=== PATIENT | female | born 1980 | race Caucasian/White ===

== ENCOUNTER 2016-06-21 12:06 | Emergency (ER) | payer OTHER ==
[~2016-06-21] VITALS: Ht 172.7 cm; Wt 110.0 kg
[~2016-06-21 12:06] MED LIST: ALBU8I INH; BACT800T5 PO; IBUP800T23 PO
[2016-06-21 12:07] VITALS: BP 156/80; PULSE 72; RESP 16; TEMP 97.8; O2SAT 99
[2016-06-21 13:13] VITALS: BP 134/76; PULSE 99; RESP 16
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
[2016-06-21] MEDS ORDERED: diphenhydrAMINE HCL 50 MG/ML VIAL IV ONE (14:15)
[2016-06-21] MEDS ORDERED: METOCLOPRAMIDE HCL 10 MG/2 ML VIAL IV PUSH ONE (14:15)
[2016-06-21] MEDS ORDERED: ONDANSETRON HCL 4 MG/2 ML VIAL IVP ONE (14:15)
[2016-06-21] MEDS ORDERED: SODIUM CHLORIDE 0.9% FLUSH 10 ML FLUSH IVF PRN (14:15)
[2016-06-21 14:16] VITALS: O2SAT 97
[2016-06-21 14:26] LABS: AUTOMATED NEUTROPHIL # 7.6 TH/MM3 (1.8-7.7); BASOPHIL # 0.1 TH/MM3 (0-0.2); BASOPHIL % 0.7 % (0.0-2.0); EOSINOPHIL # 0.1 TH/MM3 (0-0.4); HEMATOCRIT 38.4 % (35.0-46.0); HEMO FLAGS DIFF FINAL; LYMPH % 18.6 % (9.0-44.0); LYMPHOCYTE # 1.9 TH/MM3 (1.0-4.8); MEAN CELL VOLUME 86.7 FL (80.0-100.0); MEAN CORPUSCULAR HEMOGLOBIN 28.9 PG (27.0-34.0); MEAN CORPUSCULAR HGB CONC 33.3 % (32.0-36.0); MONO % 6.2 % (0.0-8.0); NEUT % 73.5 % (16.0-70.0); PLATELET COUNT 234 TH/MM3 (150-450); RED BLOOD COUNT 4.43 MIL/MM3 (4.00-5.30); RED CELL DISTRIBUTION WIDTH 13.4 % (11.6-17.2); WHITE BLOOD COUNT 10.4 TH/MM3 (4.0-11.0)
[2016-06-21 14:38] LABS: BICARBONATE 25.9 MEQ/L (21.0-32.0); MAGNESIUM 2.2 MG/DL (1.5-2.5); POTASSIUM 3.5 MEQ/L (3.5-5.1)
--- NOTE | 2016-06-21 14:57 | PD ---
Data Data Last Documented VS Vital Signs Date Time Temp Pulse Resp B/P Pulse Ox O2 Delivery O2 Flow Rate FiO2 06/21/16 14:16 97 Room Air 06/21/16 13:13 99 16 134/76 06/21/16 12:07 97.8 Orders Basic Metabolic Panel (Bmp) (06/21/16 14:02) Complete Blood Count With Diff (06/21/16 14:02) Magnesium (Mg) (06/21/16 14:02) Ecg Monitoring (06/21/16 14:02) Iv Access Insert/Monitor (06/21/16 14:02) Oximetry (06/21/16 14:02) Ondansetron Inj (Zofran Inj) (06/21/16 14:15) Sodium Chloride 0.9% Flush (Ns Flush) (06/21/16 14:15) Ed Urine Pregnancytest Poc (06/21/16 14:02) Diphenhydramine Inj (Benadryl Inj) (06/21/16 14:15) Metoclopramide Inj (Reglan Inj) (06/21/16 14:15) Labs Laboratory Tests Test 06/21/16 14:16 White Blood Count 10.4 TH/MM3 Red Blood Count 4.43 MIL/MM3 Hemoglobin 12.8 GM/DL Hematocrit 38.4 % Mean Corpuscular Volume 86.7 FL Mean Corpuscular Hemoglobin 28.9 PG Mean Corpuscular Hemoglobin 33.3 % Concent Red Cell Distribution Width 13.4 % Platelet Count 234 TH/MM3 Mean Platelet Volume 8.4 FL Neutrophils (%) (Auto) 73.5 % Lymphocytes (%) (Auto) 18.6 % Monocytes (%) (Auto) 6.2 % Eosinophils (%) (Auto) 1.0 % Basophils (%) (Auto) 0.7 % Neutrophils # (Auto) 7.6 TH/MM3 Lymphocytes # (Auto) 1.9 TH/MM3 Monocytes # (Auto) 0.6 TH/MM3 Eosinophils # (Auto) 0.1 TH/MM3 Basophils # (Auto) 0.1 TH/MM3 CBC Comment DIFF FINAL Differential Comment Sodium Level 140 MEQ/L Potassium Level 3.5 MEQ/L Chloride Level 106 MEQ/L Carbon Dioxide Level 25.9 MEQ/L Anion Gap 8 MEQ/L Blood Urea Nitrogen 9 MG/DL Creatinine 0.79 MG/DL Estimat Glomerular Filtration 82 ML/MIN Rate Random Glucose 94 MG/DL Calcium Level 8.8 MG/DL Magnesium Level 2.2 MG/DL MDM Supervised Visit with GEENA: Yes Narrative Course I, Dr. Tipton, have reviewed the advance practice practioner's documentation and am in agreement, met with the patient face to face, made the diagnosis, and the medical decision making was done by me. *My assessment and Findings: 35-year-old female here with complaint of headache. This radiates from the upper back into the neck into the occiput and slightly throughout the head. This is throbbing. She does note some flashers, floaters. Some lightheadedness and dizziness. She does not have a history of heavy menses. Patient's notes that she went on a crash diet approximate 1 week ago and cut out all caffeine. This morning she tried a dose of Excedrin Migraine with caffeine in it which helped, but when it wore off her headache return. My strong suspicion is that this is tension headache versus caffeine withdrawal. With her lightheadedness, will obtain laboratory workup to evaluate for anemia electrolyte abnormality and discharged home when negative. Patient Instructions: General Instructions Departure Forms: Tests/Procedures Scripts No Active Prescriptions or Reported Meds Daily Tipton MD Jun 21, 2016 14:57
== END 2016-06-21 15:05 | disposition home or self-care (01) ==
LOC: NEPD 12:06
DX: G44.209 Tension-type headache, unspecified, not intractable (principal); F15.93 Other stimulant use, unspecified with withdrawal
CPT/HCPCS: 80048; 83735; 84703; 85025; 96374; 96375; 99284; J1200; J2405; J2765

== ENCOUNTER 2016-09-01 05:08 | Emergency (ER) | payer OTHER ==
[~2016-09-01] VITALS: Ht 172.7 cm; Wt 110.0 kg
[2016-09-01 05:10] VITALS: BP 159/80; PULSE 117; RESP 16; TEMP 99.7; O2SAT 96
[2016-09-01] MEDS ORDERED: PRED20 PO (05:26)
[2016-09-01] MEDS ORDERED: BENZ100 PO (05:26)
[2016-09-01] MEDS ORDERED: FLUT1INH3 (05:26)
[2016-09-01] MEDS ORDERED: SODIUM CHLORIDE 0.9% FLUSH 10 ML FLUSH IVF PRN (05:30)
[2016-09-01] MEDS ORDERED: methylPREDNISolone SOD SUCC 125 MG/2 ML VIAL IVP ONE (05:30)
[2016-09-01] MEDS: RESP: ALBUTEROL 2.5 MG/IPRATROPIUM 0.5 MG NEB (SCH) INH ×2 (05:35→05:36)
[2016-09-01 05:36] VITALS: O2SAT 95
[2016-09-01 05:45] VITALS: PULSE 119; RESP 22; O2SAT 95
--- NOTE | 2016-09-01 05:50 | RADRPT ---
EXAM DATE/TIME: 09/01/2016 05:43 [facility] COMPARISON: No previous studies available for comparison. INDICATIONS : Shortness of breath. MEDICAL HISTORY : None. SURGICAL HISTORY : None. ENCOUNTER: Initial ACUITY: 2 days PAIN SCORE: 0/10 LOCATION: Bilateral chest FINDINGS: A single view of the chest demonstrates the lungs to be symmetrically aerated without evidence of mas s, infiltrate or effusion. The cardiomediastinal contours are unremarkable. Osseous structures are intact. CONCLUSION: The lungs are clear. Allan Michelle MD on September 01, 2016 at 5:48 Board Certified Radiologist. This report was verified electronically.
--- NOTE | 2016-09-01 06:14 | PD ---
HPI Chief Complaint: Respiratory Symptoms Time Seen by Provider: 05:24 Travel History International Travel<30 days: No Contact w/Intl Traveler<30days: No Traveled to known affect area: No History of Present Illness HPI The patient is a 35 year old female who presents to the [facility] emergency department with a history of developing a scratchy throat with dry cough on Tuesday. The patient reports that subsequent to that she began to have a sensation of chest tightness and shortness of breath. The patient reports that [facility] for this. She was noted on lung exam to have wheezing. She was diagnosed with bronchitis and given a prescription for an inhaler, prednisone, and a cough suppressant. The patient reports that last night she had chills and a subjective fever. On review of systems the patient denies any neck pain, abdominal pain, vomiting, diarrhea, urinary symptoms, or neurologic symptoms. LMP: Ended 2 days ago PFSH Past Medical History Narrative Medical The patient's past medical history is reportedly none. Blood Disorders: No Cancer: No Cardiovascular Problems: No Diminished Hearing: No Endocrine: No Genitourinary: No Immune Disorder: No Implanted Vascular Access Dvce: Yes Musculoskeletal: No Neurologic: No Psychiatric: No Reproductive: No Respiratory: No ?: Not Past Surgical History Narrative Surgical The patient's past surgical history is significant for left knee surgery, left foot surgery. Body Medical Devices: ? HARDWARE LEFT KNEE Other Surgery: Yes Social History Alcohol Use: No Tobacco Use: No Substance Use: No Allergies-Medications (Allergen,Severity, Reaction): Coded Allergies: Augmentin (Verified Allergy, Severe, Rash, 09/01/16) Reported Meds & Prescriptions Reported Meds & Active Scripts Active Reported Arnuity Ellipta (Fluticasone Furoate (Inhalatio) 100 Mcg/Act Inh Tessalon Perles (Benzonatate) 100 Mg Cap 200 Mg PO TID PRN Prednisone 20 Mg Tab 20 Mg PO DIRECTED 40 MG twice a day x 3 days, then 20 MG daily x 3 days, then 10 MG daily x 3 days Review of Systems Except as stated in HPI: all other systems reviewed are Neg General / Constitutional: Positive: Fever, Chills Eyes: No: Visual changes HENT: Positive: Sore Throat, Congestion, No: Headaches Cardiovascular: Positive: Chest Pain or Discomfort (chest tightness), Dyspnea on exertion Respiratory: Positive: Cough, Shortness of Breath, Wheezing Gastrointestinal: No: Abdominal Pain Genitourinary: No: Dysuria Musculoskeletal: No: Pain Skin: No Rash Neurologic: No: Weakness Psychiatric: No: Depression Endocrine: No: Polydipsia Hematologic/Lymphatic: No: Easy Bruising Physical Exam Narrative General: The patient is a well-developed well-nourished female, in no acute distress. Head and Neck exam: Head is normocephalic atraumatic. Eyes: EOMI, pupils are equal round and reactive to light. Nose: Midline septum with pink mucous membranes Mouth: Dentition unremarkable. Moist mucus membranes. Posterior oropharynx is not erythematous. No tonsillar hypertrophy. Uvula midline. Airway patent. Neck: No palpable lymphadenopathy. No nuchal rigidity. No thyromegaly. Cardiovascular: Sinus tachycardia in the 1 teens without murmurs, gallops, or rubs. No pulse deficit to the extremities and simultaneous auscultation and palpation of her radial artery. Lungs: Expiratory wheezes are audible throughout bilateral lung [place]. No rhonchi or crackles. No accessory muscle use. No paroxysmal abdominal breathing. No tripoding. Abdomen: Soft, without tenderness to palpation in all 4 quadrants of the abdomen. No guarding, rebound, or rigidity. Normal bowel sounds are audible. No tenderness on palpation of McBurney's point. Negative [place] sign. Extremities: No clubbing, cyanosis, or edema. 2+ pulses in all 4 extremities. No calf tenderness on palpation. Back: No costovertebral angle tenderness to palpation. Neurologic Exam: Grossly nonfocal. Skin Exam: No rash noted. Intact skin that is warm and dry. Data Data Last Documented VS Vital Signs Date Time Temp Pulse Resp B/P Pulse Ox O2 Delivery O2 Flow Rate FiO2 09/01/16 06:28 99.8 120 16 134/79 99 Room Air 09/01/16 05:36 21 Orders Complete Blood Count With Diff (09/01/16 05:25) Comprehensive Metabolic Panel (09/01/16 05:25) B-Type Natriuretic Peptide (09/01/16 05:25) Act Partial Throm Time (Ptt) (09/01/16 05:25) Prothrombin Time / Inr (Pt) (09/01/16 05:25) Magnesium (Mg) (09/01/16 05:25) Ckmb (Isoenzyme) Profile (09/01/16 05:25) Troponin I (09/01/16 05:25) Influenzae A/B Antigen (09/01/16 05:25) Blood Culture (09/01/16 05:25) Iv Access Insert/Monitor (09/01/16 05:25) Electrocardiogram (09/01/16 05:25) Ecg Monitoring (09/01/16 05:25) Oximetry (09/01/16 05:25) Oxygen Administration (09/01/16 05:25) Chest, Single Ap (09/01/16 05:25) Sodium Chloride 0.9% Flush (Ns Flush) (09/01/16 05:30) Methylprednisolone So Succ Inj (Solumedr (09/01/16 05:30) Albuterol-Ipratropium Neb (Duoneb Neb) (09/01/16 05:30) Lactic Acid Sepsis Protocol (09/01/16 05:25) Ct Pulmonary Angiogram (09/01/16 06:04) Ed Urine Pregnancytest Poc (09/01/16 06:04) Sodium Chlorid 0.9% 500 Ml Inj (Ns 500 M (09/01/16 06:15) CKMB (09/01/16 06:00) CKMB% (09/01/16 06:00) Sodium Chlor 0.9% 1000 Ml Inj (Ns 1000 M (09/01/16 07:30) Acetaminophen (Tylenol) (09/01/16 07:30) Labs Laboratory Tests Test 09/01/16 06:00 White Blood Count 8.4 TH/MM3 Red Blood Count 4.27 MIL/MM3 Hemoglobin 12.5 GM/DL Hematocrit 36.4 % Mean Corpuscular Volume 85.4 FL Mean Corpuscular Hemoglobin 29.4 PG Mean Corpuscular Hemoglobin 34.4 % Concent Red Cell Distribution Width 13.2 % Platelet Count 215 TH/MM3 Mean Platelet Volume 8.9 FL Neutrophils (%) (Auto) 79.2 % Lymphocytes (%) (Auto) 7.3 % Monocytes (%) (Auto) 10.0 % Eosinophils (%) (Auto) 2.8 % Basophils (%) (Auto) 0.7 % Neutrophils # (Auto) 6.7 TH/MM3 Lymphocytes # (Auto) 0.6 TH/MM3 Monocytes # (Auto) 0.8 TH/MM3 Eosinophils # (Auto) 0.2 TH/MM3 Basophils # (Auto) 0.1 TH/MM3 CBC Comment DIFF FINAL Differential Comment Prothrombin Time 10.1 SEC Prothromb Time International 0.9 RATIO Ratio Activated Partial 26.6 SEC Thromboplast Time Sodium Level 140 MEQ/L Potassium Level 4.1 MEQ/L Chloride Level 107 MEQ/L Carbon Dioxide Level 24.4 MEQ/L Anion Gap 9 MEQ/L Blood Urea Nitrogen 9 MG/DL Creatinine 0.81 MG/DL Estimat Glomerular Filtration 80 ML/MIN Rate Random Glucose 98 MG/DL Lactic Acid Level 1.6 mmol/L Calcium Level 8.7 MG/DL Magnesium Level 1.9 MG/DL Total Bilirubin 0.8 MG/DL Aspartate Amino Transf 34 U/L (AST/SGOT) Alanine Aminotransferase 45 U/L (ALT/SGPT) Alkaline Phosphatase 74 U/L Total Creatine Kinase 117 U/L Creatine Kinase MB LESS THAN 0.5 NG/ML Troponin I LESS THAN 0.02 NG/ML B-Type Natriuretic Peptide 31 PG/ML Total Protein 7.2 GM/DL Albumin 3.6 GM/DL MDM Medical Decision Making Medical Screen Exam Complete: Yes Emergency Medical Condition: Yes Medical Record Reviewed: Yes Interpretation(s) Last Impressions Chest X-Ray 09/01/16 0525 Signed Impressions: Service Date/Time: Tuesday, September 01, 2016 05:43 - CONCLUSION: The lungs are clear. Allan Michelle MD Differential Diagnosis Bronchitis with reactive airway and wheezing, versus pulmonary embolism, versus pneumonia, versus pneumothorax Narrative Course During the course of the patients emergency department visit, the patients history, examination, and differential diagnosis were reviewed with the patient. The patient had IV access obtained and blood work sent for analysis. The patient was placed on a media monitor with oximetry and blood pressure monitoring. The patient had an EKG done on arrival. The patient's EKG shows a sinus tachycardia rate of 108, nonspecific T-wave abnormalities, no acute ST segment elevation, QRS duration 96 ms, QTC 370 ms, T waves are inverted in lead 3, V1. The patient was initially provided Solu-Medrol 125 mg IV, DuPriya nebs. The patients laboratory studies were reviewed and remarkable for a white count of 8.4, hemoglobin 12.5, platelets 215 with neutrophils 79.2, lymphocytes 7.3, monocytes 10, CMP is remarkable for GFR of 80, CPK and troponin I within normal limits, BNP 31, lactic acid 1.6, PT PTT within normal limits. Radiology studies were reviewed and remarkable for a chest x-ray shows no acute abnormality. A CTA to rule out PE is pending. The patient's case was checked out to the oncoming emergency physician to disposition based on the conclusion of the patient's CTA to rule out PE. This is negative I anticipate the patient will be discharged home. Diagnosis Primary Impression: Shortness of breath Additional Impressions: Bronchitis Reactive airway disease Qualified Code: J45.20 - Reactive airway disease, mild intermittent, uncomplicated Joselyn Hatfield MD Sep 01, 2016 06:14
[2016-09-01] MEDS ORDERED: SODIUM CHLORID 0.9% 500 ML INJ 500 ML IV ONE (06:15)
[2016-09-01 06:28] VITALS: BP 134/79; PULSE 120; RESP 16; TEMP 99.8; O2SAT 99
[2016-09-01 06:39] LABS: AUTOMATED NEUTROPHIL # 6.7 TH/MM3 (1.8-7.7); BASOPHIL # 0.1 TH/MM3 (0-0.2); BASOPHIL % 0.7 % (0.0-2.0); EOSINOPHIL # 0.2 TH/MM3 (0-0.4); EOSINOPHIL % 2.8 % (0.0-4.0); HEMATOCRIT 36.4 % (35.0-46.0); HEMO FLAGS DIFF FINAL; LYMPH % 7.3 % (9.0-44.0); LYMPHOCYTE # 0.6 TH/MM3 (1.0-4.8); MEAN CELL VOLUME 85.4 FL (80.0-100.0); MEAN CORPUSCULAR HEMOGLOBIN 29.4 PG (27.0-34.0); MEAN CORPUSCULAR HGB CONC 34.4 % (32.0-36.0); NEUT % 79.2 % (16.0-70.0); PLATELET COUNT 215 TH/MM3 (150-450); RED BLOOD COUNT 4.27 MIL/MM3 (4.00-5.30); RED CELL DISTRIBUTION WIDTH 13.2 % (11.6-17.2); WHITE BLOOD COUNT 8.4 TH/MM3 (4.0-11.0)
[2016-09-01 06:57] LABS: APTT (PATIENT) 26.6 SEC (24.3-30.1); INTERNATIONAL NORMALIZED RATIO 0.9 RATIO; PROTHROMBIN TIME - PATIENT 10.1 SEC (9.8-11.6)
[2016-09-01 07:06] LABS: ALKALINE PHOSPHATASE 74 U/L (45-117); ALT (GPT) 45 U/L (10-53); ANION GAP 9 MEQ/L (5-15); AST (GOT) 34 U/L (15-37); BICARBONATE 24.4 MEQ/L (21.0-32.0); BLOOD UREA NITROGEN 9 MG/DL (7-18); CHLORIDE 107 MEQ/L (98-107); CREATINE KINASE 117 U/L (26-192); GLOMERULAR FILTRATION RATE 80 ML/MIN (>89); MAGNESIUM 1.9 MG/DL (1.5-2.5); SODIUM (NA) 140 MEQ/L (136-145); TOTAL BILIRUBIN ADULT 0.8 MG/DL (0.2-1.0)
[2016-09-01 07:07] LABS: POTASSIUM 4.1 MEQ/L (3.5-5.1)
[2016-09-01 07:19] LABS: CKMB LESS THAN 0.5 NG/ML (0.5-3.6)
[2016-09-01] MEDS ORDERED: SODIUM CHLOR 0.9% 1000 ML INJ 1,000 ML IV ONE (07:30)
[2016-09-01] MEDS ORDERED: ACETAMINOPHEN 325 MG TAB PO ONE (07:30)
--- NOTE | 2016-09-01 07:34 | PD ---
Data Data Last Documented VS Vital Signs Date Time Temp Pulse Resp B/P Pulse Ox O2 Delivery O2 Flow Rate FiO2 09/01/16 10:18 76 18 142/74 97 09/01/16 06:28 99.8 Room Air 09/01/16 05:36 21 Orders Complete Blood Count With Diff (09/01/16 05:25) Comprehensive Metabolic Panel (09/01/16 05:25) B-Type Natriuretic Peptide (09/01/16 05:25) Act Partial Throm Time (Ptt) (09/01/16 05:25) Prothrombin Time / Inr (Pt) (09/01/16 05:25) Magnesium (Mg) (09/01/16 05:25) Ckmb (Isoenzyme) Profile (09/01/16 05:25) Troponin I (09/01/16 05:25) Influenzae A/B Antigen (09/01/16 05:25) Blood Culture (09/01/16 05:25) Iv Access Insert/Monitor (09/01/16 05:25) Electrocardiogram (09/01/16 05:25) Ecg Monitoring (09/01/16 05:25) Oximetry (09/01/16 05:25) Oxygen Administration (09/01/16 05:25) Chest, Single Ap (09/01/16 05:25) Sodium Chloride 0.9% Flush (Ns Flush) (09/01/16 05:30) Methylprednisolone So Succ Inj (Solumedr (09/01/16 05:30) Albuterol-Ipratropium Neb (Duoneb Neb) (09/01/16 05:30) Lactic Acid Sepsis Protocol (09/01/16 05:25) Ct Pulmonary Angiogram (09/01/16 06:04) Ed Urine Pregnancytest Poc (09/01/16 06:04) Sodium Chlorid 0.9% 500 Ml Inj (Ns 500 M (09/01/16 06:15) CKMB (09/01/16 06:00) CKMB% (09/01/16 06:00) Sodium Chlor 0.9% 1000 Ml Inj (Ns 1000 M (09/01/16 07:30) Acetaminophen (Tylenol) (09/01/16 07:30) Iohexol 350 Inj (Omnipaque 350 Inj) (09/01/16 09:15) Labs Laboratory Tests Test 09/01/16 06:00 White Blood Count 8.4 TH/MM3 Red Blood Count 4.27 MIL/MM3 Hemoglobin 12.5 GM/DL Hematocrit 36.4 % Mean Corpuscular Volume 85.4 FL Mean Corpuscular Hemoglobin 29.4 PG Mean Corpuscular Hemoglobin 34.4 % Concent Red Cell Distribution Width 13.2 % Platelet Count 215 TH/MM3 Mean Platelet Volume 8.9 FL Neutrophils (%) (Auto) 79.2 % Lymphocytes (%) (Auto) 7.3 % Monocytes (%) (Auto) 10.0 % Eosinophils (%) (Auto) 2.8 % Basophils (%) (Auto) 0.7 % Neutrophils # (Auto) 6.7 TH/MM3 Lymphocytes # (Auto) 0.6 TH/MM3 Monocytes # (Auto) 0.8 TH/MM3 Eosinophils # (Auto) 0.2 TH/MM3 Basophils # (Auto) 0.1 TH/MM3 CBC Comment DIFF FINAL Differential Comment Prothrombin Time 10.1 SEC Prothromb Time International 0.9 RATIO Ratio Activated Partial 26.6 SEC Thromboplast Time Sodium Level 140 MEQ/L Potassium Level 4.1 MEQ/L Chloride Level 107 MEQ/L Carbon Dioxide Level 24.4 MEQ/L Anion Gap 9 MEQ/L Blood Urea Nitrogen 9 MG/DL Creatinine 0.81 MG/DL Estimat Glomerular Filtration 80 ML/MIN Rate Random Glucose 98 MG/DL Lactic Acid Level 1.6 mmol/L Calcium Level 8.7 MG/DL Magnesium Level 1.9 MG/DL Total Bilirubin 0.8 MG/DL Aspartate Amino Transf 34 U/L (AST/SGOT) Alanine Aminotransferase 45 U/L (ALT/SGPT) Alkaline Phosphatase 74 U/L Total Creatine Kinase 117 U/L Creatine Kinase MB LESS THAN 0.5 NG/ML Troponin I LESS THAN 0.02 NG/ML B-Type Natriuretic Peptide 31 PG/ML Total Protein 7.2 GM/DL Albumin 3.6 GM/DL [facility] Supervised Visit with GEENA: No Narrative Course Patient care assumed from Dr. Hatfield at 0700. This is a 35-year-old female who presents with cough congestion. She became short of breath today which is apparently why she came into the emergency department, she was given duo nebs prior to my arrival and is feeling better. Dr. Hatfield wanted to exclude a pulmonary embolism in this patient and I'm instructed to follow up the CAT scan disposition the patient properly. Last [address] Angiography 09/01/16 0604 Signed Impressions: Service Date/Time: Thursday, September 01, 2016 09:05 - CONCLUSION: Mild infiltrate. Small potentially reactive mediastinal lymph nodes. No evidence of pulmonary embolism Praveen Rivers MD Chest X-Ray 09/01/16 0525 Signed Impressions: Service Date/Time: Thursday, September 01, 2016 05:43 - CONCLUSION: The lungs are clear. Allan Michelle MD Results were discussed with the patient, on my physical exam she does have some left-sided very faint rales. This could be an early pneumonia versus viral pneumonitis versus atelectasis. This differential diagnosis discussed with the patient and will place her on empiric antibiotics. Discussed if this is a viral bronchitis that she should anticipate 68 weeks worth of illness discussed return to ED criteria symptomatic management at home as well as follow up with her primary care physician. Diagnosis Primary Impression: Shortness of breath Additional Impressions: Reactive airway disease Qualified Code: J45.20 - Reactive airway disease, mild intermittent, uncomplicated Bronchitis Pneumonia Med/Other Pt SpecificInfo: Prescription(s) given Scripts Levofloxacin (Levaquin)750 Mg [id number] Mg PO DAILY 10 Days Prov:Torey Kwong MD 09/01/16 Disposition: 01 DISCHARGE HOME Condition: Stable Torey Kwong MD Sep 01, 2016 07:34
[2016-09-01] MEDS ORDERED: IOHEXOL 350 MG/ML 10 ML VIAL (for RAD DIAG) IV ONE (09:15)
--- NOTE | 2016-09-01 09:29 | RADRPT ---
EXAM DATE/TIME: 09/01/2016 09:05 [place] COMPARISON: No previous studies available for comparison. INDICATIONS : Chest pain with shortness of breath. IV CONTRAST: 60 cc Omnipaque 350 (iohexol) IV RADIATION DOSE: 23.98 CTDIvol (mGy) MEDICAL HISTORY : None SURGICAL HISTORY : None. ENCOUNTER: Initial ACUITY: 4 - 6 days PAIN SCALE: 4/10 LOCATION: Bilateral chest TECHNIQUE: Volumetric scanning of the chest was performed using a pulmonary embolism protocol MIP images were re constructed. Using automated exposure control and adjustment of the mA and/or kV according to patien t size, radiation dose was kept as low as reasonably achievable to obtain optimal diagnostic quality images. DICOM format image data is available electronically for review and comparison. FINDINGS: PULMONARY ARTERIES: No filling defects are seen in the pulmonary arteries through the segmental level. LUNGS: Minimal basilar atelectasis or infiltrate, left worse than right. PLEURAE: There is no pleural thickening or pleural effusion. MEDIASTINUM: Scattered small potentially reactive central mediastinal lymph nodes MUSCULOSKELETAL: Within normal limits for patient age. MISCELLANEOUS: The visualized upper abdominal organs demonstrate no acute abnormality. CONCLUSION: Mild infiltrate. Small potentially reactive mediastinal lymph nodes. No evidence of pulmonary embolism Praveen Rivers MD on September 01, 2016 at 9:24 Board Certified Radiologist. This report was verified electronically.
[2016-09-01 09:43] VITALS: RESP 18
[2016-09-01] MEDS ORDERED: LEVA750T9 PO (09:54)
[2016-09-01 10:18] VITALS: BP 142/74
--- NOTE | 2016-09-01 23:03 | EKG ---
Date Performed: 09/01/2016 Time Performed: 05:25:13 PTAGE: 35 years EKG: SINUS TACHYCARDIA NONSPECIFIC T-WAVE ABNORMALITY ABNORMAL RHYTHM ECG PREVIOUS TRACING : 09/17/2013 17.42 Compared to the previous tracing rate faster DOCTOR: Greg Yu Interpretating Date/Time 09/01/2016 23:01:43
== END 2016-09-01 10:19 | disposition home or self-care (01) ==
LOC: NEPE 05:08
DX: J45.909 Unspecified asthma, uncomplicated (principal); J40 Bronchitis, not specified as acute or chronic; J18.9 Pneumonia, unspecified organism; R06.02 Shortness of breath; R00.0 Tachycardia, unspecified; Z79.899 Other long term (current) drug therapy
CPT/HCPCS: 71010; 71275; 80053; 82550; 82552; 83605; 83735; 83880; 84484; 84703; 85025; 85610; 85730; 87040; 87804; 93005; 94640; 94664; 96361; 96374; 99285; J2930; J7030; J7040; Q9967

== ENCOUNTER 2017-02-24 03:09 | Emergency (ER) | payer OTHER ==
[~2017-02-24] VITALS: Ht 172.7 cm; Wt 110.0 kg
[~2017-02-24 03:09] MED LIST changes: -ALBU8I INH; -BACT800T5 PO; +BENZ100 PO; +FLUT1INH3; -IBUP800T23 PO; +LEVA750T9 PO; +PRED20 PO
[2017-02-24 03:11] VITALS: BP 145/92; PULSE 90; RESP 18; TEMP 98.4; O2SAT 99
[2017-02-24] MEDS ORDERED: ALBUAER3 INH (03:46)
[2017-02-24] MEDS ORDERED: BENZ100 PO (03:46)
--- NOTE | 2017-02-24 03:49 | PD ---
HPI Chief Complaint: Cold / Flu Symptoms Time Seen by Provider: 03:41 Travel History International Travel<30 days: No Contact w/Intl Traveler<30days: No Traveled to known affect area: No History of Present Illness HPI 36-year-old white female presents to emergency department with complaints of cough and congestion. She's been sick now for the past 2-3 hours. The patient states that she's been coughing so much she feels her throat is closing. She cannot sleep this evening. She admits to having subjective fever but no documented fever. No ear pain, shortness of breath, nausea, vomiting, abdominal pain or urinary symptoms. PFSH Past Medical History Blood Disorders: No Cancer: No Cardiovascular Problems: No Diminished Hearing: No Endocrine: No Genitourinary: No Immune Disorder: No Musculoskeletal: No Neurologic: No Psychiatric: No Reproductive: No Respiratory: No Tetanus Vaccination: < 5 Years Influenza Vaccination: No ?: Not LMP: 02/18/2017 Past Surgical History Body Medical Devices: HARDWARE LEFT KNEE Other Surgery: Yes Social History Alcohol Use: Yes (occionally) Tobacco Use: No Substance Use: No Allergies-Medications (Allergen,Severity, Reaction): Coded Allergies: amoxicillin (Unverified Allergy, Severe, Rash, 02/24/17) clavulanic acid (Unverified Allergy, Severe, Rash, 02/24/17) Reported Meds & Prescriptions Reported Meds & Active Scripts Active Levaquin (Levofloxacin) 750 Mg Tablet 750 Mg PO DAILY 10 Days Reported Arnuity Ellipta (Fluticasone Furoate (Inhalatio) 100 Mcg/Act Inh Tessalon Perles (Benzonatate) 100 Mg Cap 200 Mg PO TID PRN Prednisone 20 Mg Tab 20 Mg PO DIRECTED 40 MG twice a day x 3 days, then 20 MG daily x 3 days, then 10 MG daily x 3 days Review of Systems Except as stated in HPI: all other systems reviewed are Neg Physical Exam Narrative GENERAL: Well-developed, well-nourished in no acute distress. Nontoxic appearing. HEAD: Normocephalic, atraumatic. EYES: Pupils equal round and reactive. Extraocular motions intact. No scleral icterus. No injection or drainage. ENT: TMs clear without erythema. The external auditory canals clear. Nose: clear . Posterior pharynx is pink and moist. No tonsillar edema or exudate. Uvula midline. Airway patent. NECK: Trachea midline.Supple, nontender, moves head freely. No central bony tenderness or spasm. CARDIOVASCULAR: Regular rate and rhythm without murmurs, gallops, or rubs. RESPIRATORY: Clear to auscultation. Breath sounds equal bilaterally. No wheezes , rales, or rhonchi. GASTROINTESTINAL: Abdomen soft, non-tender, nondistended. No hepato-splenomegaly , or palpable masses. No guarding. EXTREMITIES: No clubbing, cyanosis, or edema. No joint tenderness, effusion, or edema noted. BACK: Nontender without deformity or crepitance. No flank tenderness. Data Data Last Documented VS Vital Signs Date Time Temp Pulse Resp B/P (MAP) Pulse Ox O2 Delivery O2 Flow Rate FiO2 02/24/17 03:11 98.4 90 18 145/92 (109) 99 Room Air MDM Medical Decision Making Medical Screen Exam Complete: Yes Emergency Medical Condition: Yes Medical Record Reviewed: Yes Differential Diagnosis MDM: High Differential diagnoses: Pneumonia, bronchitis, URI, asthma, RAD, legionnaire's disease, SARS, ARDS, influenza, bronchiolitis, RSV,PE,CHF Narrative Course Patient's airway is clear and pain. She is handling her secretions well. Normal phonation. The patient has a viral URI. Patient will be given a prescription for Tessalon Perles and albuterol. Diagnosis Primary Impression: Viral URI with cough Patient Instructions: General Instructions Departure Forms: Tests/Procedures, Work Release Special Instructions: No work 2 days. Additional Instructions: Rest. Increase fluids. Tylenol and Advil. Robitussin-DM. Tessalon and albuterol. Followup with your DrMelina in one week. Return to the ER for any problems. Med/Other Pt SpecificInfo: Prescription(s) given Scripts Albuterol 8.5 GM Inh (Proair Hfa 8.5 GM Inh) 90 Mcg/Act Aer 2 PUFF INH Q4-6H Y for SHORTNESS OF BREATH, #1 INHALER 0 Refills 108 mcg/actuation Prov: Denilson Valdez MD 02/24/17 Benzonatate (Tessalon Perles) 100 Mg Cap 200 MG PO TID Y for COUGH, #21 CAP 0 Refills Prov: Denilson Valdez MD 02/24/17 Disposition: 01 DISCHARGE HOME Condition: Stable Jonah Edouard Feb 24, 2017 03:49
== END 2017-02-24 04:05 | disposition home or self-care (01) ==
LOC: NEPD 03:09
DX: J06.9 Acute upper respiratory infection, unspecified (principal); Z79.899 Other long term (current) drug therapy; Z88.0 Allergy status to penicillin; Z88.8 Allergy status to other drugs, medicaments and biological substances
CPT/HCPCS: 99284

== ENCOUNTER → 2017-08-18 | Day surgery (SDC) | payer OTHER ==
[~2017-08-18] VITALS: Ht 172.7 cm; Wt 113.4 kg
[~2017-08-18] MED LIST changes: +ALBUAER3 INH; +BUPIVACAINE HCL PF 0.5% 10 ML VIAL ONE; +BUPIVACAINE HCL PF 0.5% 30 ML VIAL ONE; +CHLORHEXIDINE GLUCONATE 2 % 1 PACK (2 CLOTHS) TOPICAL PRN; +CIPR250T52 PO; +CIPROFLOXACIN/DEXT 400 MG/200 ML IV SCH; +FURO20TA PO; +HYDR-3288 PO; +K-TA10TA PO; +LACTATED RINGER'S 1000 ML IV PRN; +LIDOCAINE HCL 2% 50 ML VIAL ONE; +MIDAZOLAM HCL 2 MG/2 ML VIAL ONE; +NEOMYCIN/POLYMYXIN 1 ML G.U. IRRIGANT ONE; +POVIDONE IODINE 5% (ANTISEPSIS KIT) 4 APPLICATIONS EACH NARE PRN; +SODIUM CHLORID 0.9% 500 ML IV PRN; +TRIAMCINOLONE ACETONIDE 40 MG/ML VIAL ONE
[2017-08-18 10:15] VITALS: BP 134/70; PULSE 62; RESP 16; TEMP 98; O2SAT 99
--- NOTE | 2017-08-18 10:53 | MP ---
cc: Joseph Mejia MD DATE OF OPERATION: 08/18/2017 PREOPERATIVE DIAGNOSIS: Left carpal tunnel syndrome. PROCEDURE PERFORMED: Left open carpal tunnel release. SURGEON: Joseph Mejia III, MD DESCRIPTION OF PROCEDURE: The patient was brought to the operating room and placed supine on the operative table. After the correct side and site of surgery were verified by members of each team in the room multiple times including the patient and myself, and after adequate preoperative markings and preoperative written consent were verified by everyone, and after adequate IV sedation was achieved, the left upper extremity was prepped and draped in traditional sterile surgical fashion. A 50:50 mixture of 2% plain lidocaine and 0.5% plain Marcaine was infiltrated in the skin and subcutaneous tissue at the base of the palm into the carpal tunnel. The wound was exsanguinated with an Silvino wrap and a highly placed well-padded axillary tourniquet was inflated to 220 mmHg for a total of 9 minutes. A longitudinally oriented incision within the skin crease at the base of the palm was made and carried down through skin and subcutaneous tissue. Blunt dissection was performed. Palmar fascia was retracted in opposite directions. The transverse carpal ligament was identified and transected to the ulnar side of midline from its proximal-most to its distal-most extent. It was very thick and redundant and the nerve and carpal tunnel contents had obvious rebound. There was no other evidence of any mass effect. There were no other anatomic abnormalities identified. Thorough irrigation with saline was performed. The skin edges were reapproximated using running 4-0 nylon suture. The hand and arm were thoroughly cleansed and dried. Betadine and Adaptic dressings were applied on top of the wound followed by a bulky soft dressing. The hand and arm were thoroughly cleansed and dried. The axillary tourniquet was released and the hand and all the fingers became immediately soft, pink and warm and had brisk capillary refill of less than 2 seconds. The patient was awakened from anesthesia and transported to the postanesthesia care unit awake and in stable condition. Joseph Mejia MD LCB/TL , 10:23 AM , 10:51 AM
== END | disposition home or self-care (01) ==
LOC: PHSDC 06:16
PROVIDERS: ATTEND Orthopaedic Surgery Hand Surgery
DX: G56.02 Carpal tunnel syndrome, left upper limb (principal)
CPT/HCPCS: 01810; 64721; J0744; J2250; J7120; J3301